=== PATIENT | male | born 1990 | race Caucasian/White ===

== ENCOUNTER 2020-06-18 11:14 | Emergency (ER) | payer BC ==
--- NOTE | 2020-06-18 12:16 | EDM.PDOC ---
ED HPI GENERAL MEDICAL PROBLEM - General Chief Complaint: Skin Complaint Stated Complaint: SKIN BURNING AND PAIN BY BELLY BUTTON Time Seen by Provider: 06/18/20 11:30 Source of Information: Reports: Patient History Limitations: Reports: No Limitations - History of Present Illness INITIAL COMMENTS - FREE TEXT/NARRATIVE: Patient presented to the ED because of redness, pain and foul smelling discharge coming from his umbilicus which he noticed 2 days ago. There is no fever or chills. He has a history of Crohn's Disease, denies any N/V,abdominal pain or bloody stool recently. - Related Data Allergies Allergy/AdvReac Type Severity Reaction Status Date / Time No Known Allergies Allergy Verified 06/18/20 12:09 Home Meds: Home Meds Sulfamethoxazole/Trimethoprim [Bactrim Ds Tablet] 1 each PO BID #20 tablet 06/18/20 [Rx] Past Medical History Gastrointestinal History: Reports: Other (See Below) Other Gastrointestinal History: hx of chrohn's disease Social & Family History - Tobacco Use Smoking Status *Q: Never Smoker - Caffeine Use Caffeine Use: Reports: Soda - Recreational Drug Use Recreational Drug Use: No ED ROS GENERAL - Review of Systems Review Of Systems: See Below Constitutional: Reports: No Symptoms HEENT: Reports: No Symptoms Respiratory: Reports: No Symptoms Cardiovascular: Reports: No Symptoms Endocrine: Reports: No Symptoms GI/Abdominal: Reports: No Symptoms : Reports: No Symptoms Musculoskeletal: Reports: No Symptoms Skin: Reports: Other (erythema on umilicus) ED EXAM, SKIN/RASH Exam: See Below Exam Limited By: No Limitations General Appearance: Alert, No Apparent Distress Eye Exam: Bilateral Eye: PERRL Ears: Normal External Exam Nose: Normal Inspection, Normal Mucosa Throat/Mouth: Normal Inspection, Normal Lips Head: Atraumatic, Normocephalic Neck: Normal Inspection, Supple, Non-Tender, Full Range of Motion Respiratory/Chest: No Respiratory Distress, Lungs Clear, Normal Breath Sounds Cardiovascular: Normal Peripheral Pulses, Regular Rate, Rhythm, No Edema, No Gallop, No JVD, No Murmur, No Rub GI/Abdominal: Normal Bowel Sounds, Soft, Non-Tender, No Organomegaly, No Distention, No Abnormal Bruit Back Exam: Normal Inspection, Full Range of Motion Extremities: Normal Inspection Neurological: Alert, Oriented, CN II-XII Intact Psychiatric: Normal Affect, Normal Mood Skin: Erythema Course - Vital Signs Last Recorded V/S: Last Vital Signs Temp 36.8 C 06/18/20 11:30 Pulse 78 06/18/20 11:30 Resp 18 06/18/20 11:30 BP 131/71 06/18/20 11:30 Pulse Ox 98 06/18/20 11:30 Departure - Departure Time of Disposition: 12:20 Disposition: Home, Self-Care 01 Condition: Good Clinical Impression: Cellulitis - Discharge Information Prescriptions: Sulfamethoxazole/Trimethoprim [Bactrim Ds Tablet] 1 each PO BID #20 tablet Instructions: Cellulitis, Adult, [id number] Referrals: PCP,None [Primary Care Provider] - Forms: ED Department Discharge Additional Instructions: Please read discharge instructions on cellulitis Take Bactrim DS twice daily for 10 days Hydrocortisone cream apply twice daily to the rash on your back until it's gone Follow up as needed Sepsis Event Note (ED) - Evaluation Sepsis Screening Result: No Definite Risk - Focused Exam Vital Signs: Vital Signs Temp Pulse Resp BP Pulse Ox 06/18/20 11:30 36.8 C 78 18 131/71 98
== END 2020-06-18 12:21 | disposition home or self-care (01) ==
LOC: FB.ED 11:14
DX: L03.316 Cellulitis of umbilicus (principal)
CPT/HCPCS: 99282

== ENCOUNTER 2021-02-03 23:26 | Emergency (ER) | payer SELFPAY ==
--- NOTE | 2021-02-04 00:32 | EDM.PDOC ---
ED HPI GENERAL MEDICAL PROBLEM - General Chief Complaint: ENT Problem Stated Complaint: PAIN BOTH SIDE NECK Time Seen by Provider: 02/04/21 00:30 Source of Information: Reports: Patient History Limitations: Reports: No Limitations - History of Present Illness INITIAL COMMENTS - FREE TEXT/NARRATIVE: Patient presented to the ED because of sore throat. There is no cough,fever,chi lls. He is worried that his medicine for Chron's Dse is causing him to have strep throat again. throat and neck Pain Score (Numeric/FACES): 4 - Related Data Allergies Allergy/AdvReac Type Severity Reaction Status Date / Time No Known Allergies Allergy Verified 02/04/21 02:09 Home Meds: Home Meds NK [No Known Home Meds] 02/04/21 [History] Past Medical History Gastrointestinal History: Reports: Other (See Below) Other Gastrointestinal History: hx of chrohn's disease Social & Family History - Caffeine Use Caffeine Use: Reports: Soda ED ROS ENT - Review of Systems Review Of Systems: See Below Constitutional: Reports: No Symptoms HEENT: Reports: Throat Pain Respiratory: Reports: No Symptoms Cardiovascular: Reports: No Symptoms Endocrine: Reports: No Symptoms GI/Abdominal: Reports: No Symptoms : Reports: No Symptoms Musculoskeletal: Reports: No Symptoms Skin: Reports: No Symptoms Neurological: Reports: No Symptoms Psychiatric: Reports: No Symptoms Hematologic/Lymphatic: Reports: No Symptoms ED EXAM, ENT - Physical Exam Exam: See Below Exam Limited By: No Limitations General Appearance: Alert, No Apparent Distress Ears: Normal External Exam, Normal Canal, Hearing Grossly Normal Nose: Normal Inspection, Normal Mucousa, No Blood Mouth/Throat: Normal Inspection, Normal Gums, Normal Lips, Normal Oropharynx, Normal Teeth Head: Atraumatic, Normocephalic Neck: Normal Inspection, Supple, Non-Tender, Full Range of Motion Respiratory/Chest: No Respiratory Distress, Lungs Clear, Normal Breath Sounds Cardiovascular: Normal Peripheral Pulses, Regular Rate, Rhythm, No Edema, No Gallop GI/Abdominal: Normal Bowel Sounds, Soft, Non-Tender, No Organomegaly Back: Normal Inspection, Full Range of Motion Extremities: Normal Inspection, Normal Range of Motion, Non-Tender Neurological: Alert, Oriented, CN II-XII Intact Course - Vital Signs Text/Narrative:: Strep Test-negative Last Recorded V/S: Last Vital Signs Temp 36.6 C 02/04/21 00:20 Pulse 81 02/04/21 00:20 Resp 16 02/04/21 00:20 BP 136/76 02/04/21 00:20 Pulse Ox 100 02/04/21 00:20 - Orders/Labs/Meds Labs: Laboratory Tests 02/03/21 Range/Units 23:55 Group A Strep (PCR) Not detected (NOT DETECT) Departure - Departure Time of Disposition: 12:30 Disposition: Home, Self-Care 01 Condition: Good Clinical Impression: Pharyngitis - Discharge Information Instructions: Pharyngitis Referrals: PCP,None [Primary Care Provider] - Forms: ED Department Discharge Additional Instructions: Please read discharge instructions on pharyngitis/sore throat Gurgle with salt and water Drink ice water Take tylenol 1000 mg every 8 hours as needed for pain Follow up as needed
== END 2021-02-04 00:35 | disposition home or self-care (01) ==
LOC: FB.ED 23:26
DX: J02.9 Acute pharyngitis, unspecified (principal)
CPT/HCPCS: 87651-QW; 99283

== ENCOUNTER 2025-05-16 22:21 | Emergency (ER) | payer BC | END 2025-05-16 22:52 | disposition home or self-care (01) | LOC: FB.ED 22:21 | DX: L02.01 Cutaneous abscess of face (principal); L03.211 Cellulitis of face; Z88.8 Allergy status to other drugs, medicaments and biological substances; Z79.899 Other long term (current) drug therapy | CPT/HCPCS: 99283; A9270 ==

== ENCOUNTER 2025-07-09 07:04 | Emergency (ER) | payer BC ==
[2025-07-09 07:49] LABS: GLUCOSE,URINE NORMAL (NORMAL); OCCULT BLOOD,URINE NEGATIVE (NEGATIVE)
[2025-07-09 07:55] LABS: APPEARANCE,URINE CLEAR (CLEAR)
[2025-07-09 08:01] LABS: SQUAMOUS EPITHELIAL CELLS,UR RARE (NS,R,O)
[2025-07-09 08:08] LABS: PLATELET COUNT,PLT 243.0 x10(3)uL (117-477); RED BLOOD CELL COUNT 6.38 x10(6)uL (3.90-5.90); RED CELL DISTRIBUTION WIDTH 14.4 % (12.4-15.0); WHITE BLOOD CELL COUNT,WBC 6.6 x10-3/uL (3.2-10.1)
[2025-07-09 08:11] LABS: BLOOD UREA NITROGEN,BUN 11 mg/dL (7-18); CARBON DIOXIDE,CO2 26 mmol/L (21-32); CHLORIDE,CL 105 mmol/L (100-110); CREATININE 1.5 mg/dL (0.70-1.30); ESTIMATED GFR 63 mL/min (>60); GLUCOSE RANDOM 105 mg/dL (80-116); POTASSIUM,K 3.9 mmol/L (3.5-5.3); SODIUM,NA 142 mmol/L (135-145)
[2025-07-09 08:17] LABS: A/G RATIO 1.1; ALANINE AMINOTRANSFERASE,ALT 27 U/L (12-36); ASPARTATE AMNIOTRANSFERASE,AST 15 IU/L (5-25); BILIRUBIN TOTAL 0.5 mg/dL (0.1-1.3); PROTEIN TOTAL,TP 7.8 g/dL (6.0-8.0)
[2025-07-11 08:09] LABS: APTIMA MEDIA TYPE Urine; C. TRACHOMATIS BY TMA Negative (Negative); N. GONORRHOEAE BY TMA Negative (Negative)
== END 2025-07-09 09:58 | disposition home or self-care (01) ==
LOC: FB.ED 07:04
DX: N28.9 Disorder of kidney and ureter, unspecified (principal); M54.50 Low back pain, unspecified; Z88.8 Allergy status to other drugs, medicaments and biological substances
CPT/HCPCS: 36415; 80053; 81001; 85027; 87491; 87591; 99283; 99284

== ENCOUNTER 2025-07-10 19:54 | Emergency (ER) | payer BC | END 2025-07-10 21:31 | disposition home or self-care (01) | LOC: FB.ED 19:54 | DX: I10 Essential (primary) hypertension (principal); Z79.899 Other long term (current) drug therapy; Z88.1 Allergy status to other antibiotic agents | CPT/HCPCS: 99283; A9270 ==